=== PATIENT | male | born 1950 | race Caucasian/White ===

== ENCOUNTER 2024-02-06 06:33 | Day surgery (SDC) | payer OTHER, SELFPAY ==
[2024-02-06] VITALS (10 sets, daily range): BP systolic 87–148; BP diastolic 64–71; BMI 23.9
[2024-02-06] MEDS: NORMOSOL-R/PLASMALYTE-A 1000 IV (08:16)
[2024-02-06 08:30] LABS: Urine Albumin Trace (Neg - Trace); Urine Bilirubin Negative (Negative); Urine Character Clear (Clear); Urine Color Yellow; Urine Glucose Negative (Negative); Urine Ketone 2+ (Negative); Urine Leukocyte 1+ (Negative); Urine Nitrite Negative (Negative); Urine Occult Blood 4+ (Negative); Urine Urobilinogen Negative (Neg - 1+)
[2024-02-06 08:38] LABS: Urine Mucus Few
[2024-02-06 08:39] LABS: Urine Red Blood Cell 16-20 /HPF (0-2)
[2024-02-06 08:40] LABS: Urine Amorphous Seen
== END 2024-02-06 12:12 | disposition home or self-care (01) ==
LOC: SDS 06:33
PROVIDERS: ATTENDING PHYSICIAN Specialist
DX: N13.2 Hydronephrosis with renal and ureteral calculous obstruction (principal)
CPT/HCPCS: 52356; 74018; 76000; 81003; 81015; 82365; 87086; 93005; A4300; C1894; C2617